=== PATIENT | male | born 1995 | race Caucasian/White ===

== ENCOUNTER → 2017-05-11 | Outpatient (CLI) | payer BC ==
[~2017-05-11] MED LIST: ACET-1256 PO
[2017-05-11 17:14] LABS: BASO % 0.6 %; BASO ABS # 0.05 K/uL (0-0.2); COMPLETE YES; EOS % 1.2 %; HEMATOCRIT 43.6 % (42-52); IG% 0.2 %; LYMPH % 25.4 %; LYMPH ABS # 2.31 K/uL (1.2-3.4); MEAN CELL VOLUME 89.2 fL (80-100); MEAN CORPUSCULAR HEMOGLOBIN 30.9 pg (25-34); MEAN CORPUSCULAR HGB CONC 34.6 g/dl (32-36); MEAN PLATELET VOLUME 9.6 fL (7.4-10.4); MONO % 8.8 %; NEUT % 63.8 %; PLATELET COUNT 258 K/uL (130-400); RED BLOOD COUNT 4.89 M/uL (4.7-6.1); WHITE BLOOD COUNT 9.08 K/uL (4.8-10.8)
[2017-05-11 17:26] LABS: ALT/SGPT 25 U/L (12-78); BLOOD UREA NITROGEN 13 mg/dl (7-18); BUN/CREATININE RATIO 12.2 (10-20); CARBON DIOXIDE 30 mmol/L (21-32); CHLORIDE 106 mmol/L (98-107); GLUCOSE 78 mg/dl (70-99); MAGNESIUM 2.2 mg/dl (1.8-2.4); SODIUM 140 mmol/L (136-145)
[2017-05-11 17:37] LABS: ALB/GLOB RATIO 1.2 (0.9-2); ALKALINE PHOSPHATASE 66 U/L (45-117); AST/SGOT 17 U/L (15-37)
[2017-05-11 17:42] LABS: URINE APPEARANCE TURBID (CLEAR); URINE BILIRUBIN NEG (NEG); URINE COLOR DK YELLOW; URINE EPITHELIAL CELL AUTO 0-5 /lpf (0-5); URINE NITRITE NEG (NEG); URINE SPECIFIC GRAVITY 1.034 (1.000-1.030); UROBILINOGEN NEG (NEG)
[2017-05-11 18:15] LABS: MANUAL MICROSCOPIC REQUIRED? NO; REVIEW REQ? NO
== END | disposition home or self-care (01) ==
LOC: C.LABPBG 15:06
PROVIDERS: ATTEND Family Medicine
DX: R55 Syncope and collapse (principal)

== ENCOUNTER 2017-08-21 10:39 | Emergency (ER) | payer BC ==
[~2017-08-21] VITALS: Ht 170.2 cm; Wt 65.6 kg
[2017-08-21 10:50] VITALS: TEMP 36.9; Ht 170.2 cm; Wt 65.6 kg
[2017-08-21] MEDS ORDERED: PROPARACAINE HCL 0.5% OP SOLN 15 ML BTL ONE (11:08)
[2017-08-21] MEDS ORDERED: ERYTHROMYCIN OP OINT 5 MG/GM 3.5 GM TUBE OPL STA (11:14)
--- NOTE | 2017-08-21 11:21 | EMERGENCY ROOM VISIT NOTE ---
ED Visit Note First contact with patient: 10:59 CHIEF COMPLAINT: Left Eye injury HISTORY OF PRESENT ILLNESS: This 22-year-old male presents the ER with chief complaint of left eye redness and irritation. 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 He was wearing goggles at the time. He thought it was certified welder's flash and thought it would resolve in 24 hours but it did not. Last night he got a little worse so he put it had some erythromycin ointment that he had at home and some drops which she does not know what they were. This morning he woke up and his eye still is red and irritated and feels like there is something in it. The patient denies any visual changes. REVIEW OF SYSTEMS: 6 system review was performed and was negative unless stated otherwise in history of present illness. PMH: The patient is healthy; asthma, cholecystectomy, appendectomy SOCIAL HISTORY: Patient lives with his parents. The patient admits to tobacco use and occasional alcohol use. PHYSICAL EXAM: Vital Signs: Were reviewed Reviewed Nurse's notes. GENERAL: This is a healthy-appearing 22-year-old male who is uncomfortable from the eye problem. MENTAL Status: Alert and oriented 3. EYES: The pupils are round, equal, and react to light. EOMs are full. There is discharge of clear tears from the left eye which is injected. There is no foreign body visible under athe eyelid even after lid eversion. Slit lamp exam: A small metal foreign body was seen embedded in the cornea just inferior to the pupil over the iris.. Proparacaine drops are placed into the left eye. Using a small needle the small piece of metal was completely removed from the eye. The eye was then stained with fluorescein uptake noted over the area where the piece of metal was embedded. Remainder was clear. EMERGENCY DEPARTMENT COURSE: The fluorescein was irrigated away and erythromycin eye ointment was put into the eye. The patient was discharged home in stable condition. DIAGNOSIS: Foreign body left eye with associated corneal abrasion. DISCHARGE INSTRUCTIONS AND TREATMENT: Put the erythromycin ointment into the left eye every 4 times a day for 5-7 days. The eye should recover in about 24 to 36 hours. Return here or see an grinding room inspector if it is not improving in 2 days. Tylenol and/or ibuprofen as needed for pain. Current/Historical Medications No Active Prescriptions or Reported Meds Allergies Coded Allergies: Penicillins (Unverified Allergy, Severe, HIVES, 08/21/17) Vital Signs Date Time Temp Pulse Resp B/P (MAP) Pulse Ox O2 Delivery O2 Flow Rate FiO2 08/21/17 10:50 36.9 80 16 126/83 100 Room Air Departure Information Prescriptions No Active Prescriptions or Reported Meds Referrals Rosy Olvera DO (PCP) Forms WORK / SCHOOL INSTRUCTIONS, HOME CARE DOCUMENTATION FORM, IMPORTANT VISIT INFORMATION Patient Instructions My [facility]
[2017-08-21 11:35] VITALS: BP 124/62; PULSE 73; O2SAT 99
== END 2017-08-21 11:37 | disposition home or self-care (01) ==
LOC: C.EDB 10:40 → C.EDD 11:37
DX: T15.02XA Foreign body in cornea, left eye, initial encounter (principal); X58.XXXA Exposure to other specified factors, initial encounter; J45.909 Unspecified asthma, uncomplicated; Z90.49 Acquired absence of other specified parts of digestive tract; Z98.890 Other specified postprocedural states; Z88.0 Allergy status to penicillin